=== PATIENT | male | born 1940 | race Caucasian/White ===

== ENCOUNTER 2018-06-14 21:24 | Emergency (ER) | payer MEDICARE, MEDICAID ==
[~2018-06-14] VITALS: Ht 188 cm; Wt 79.4 kg
[2018-06-14] MEDS ORDERED: TDAP DIPH,PERTUSS,TET VAC/PF 0.5 ML DISP.SYRIN IM ONE ×2 (21:50→22:00)
--- NOTE | 2018-06-14 21:57 | NUR ---
Patient discharged to home in stable conditon. Written and verbal after care instructions given. Patient verbalizes understanding of instructions. Pt ambulated out of ER in steady gait with family member. VSS. NAD noted.
[2018-06-14 21:58] VITALS: BP 112/74
== END 2018-06-14 21:59 | disposition home or self-care (01) ==
LOC: ER 21:27
DX: S81.812D Laceration without foreign body, left lower leg, subsequent encounter (principal); L08.9 Local infection of the skin and subcutaneous tissue, unspecified; K21.9 Gastro-esophageal reflux disease without esophagitis; W22.8XXD Striking against or struck by other objects, subsequent encounter
CPT/HCPCS: 90471; 90715; 99283; A4663

== ENCOUNTER 2019-03-31 20:19 | Emergency (ER) | payer MEDICARE, MEDICAID ==
[~2019-03-31] VITALS: Ht 175.3 cm; Wt 81.2 kg
[2019-03-31] MEDS ORDERED: IV NORMAL SALINE 1000 ML BAG IV ONE (21:00)
[2019-03-31 21:26] LABS: BASOPHILS % (AUTO) 0.4 % (0.0-2.0); CARBON DIOXIDE 24 mmol/L (21-32); CHLORIDE 106 mmol/L (98-107); CREATININE 0.8 mg/dL (0.6-1.3); EOSINOPHILS # (AUTO) 0.1 K/uL (0.0-0.7); EOSINOPHILS % (AUTO) 0.7 % (0.0-7.0); GLUCOSE 113 mg/dL (74-106); HEMATOCRIT 38.7 % (36.7-47.1); HEMOGLOBIN 13.3 g/dL (12.5-16.3); LYMPHOCYTES # (AUTO) 0.5 K/uL (20.0-40.0); LYMPHOCYTES % (AUTO) 4.9 % (20.5-51.5); MEAN CORPUSCULAR HEMOGLOBIN 32.3 uug (23.8-33.4); MEAN CORPUSCULAR HGB CONC 34 g/dL (32.5-36.3); MEAN CORPUSCULAR VOLUME 93.9 fL (73.0-96.2); MONOCYTES # (AUTO) 0.4 K/uL (2.0-10.0); MONOCYTES % (AUTO) 4.6 % (0.0-11.0); NEUTROPHILS # (AUTO) 8.3 K/uL (1.8-8.9); NEUTROPHILS % (AUTO) 89.4 % (38.5-71.5); PLATELET COUNT (AUTO) 192 K/uL (152-348); RED BLOOD CELL COUNT(AUTO) 4.12 MIL/uL (4.06-5.63); UREA NITROGEN, BLOOD 15 mg/dL (7-18); WHITE BLOOD COUNT (AUTO) 9.3 K/uL (3.6-10.2)
[2019-03-31 21:32] LABS: ALANINE AMINOTRANSFERASE 17 U/L (16-63); ALKALINE PHOSPHATASE 86 U/L (50-136); ASPARTATE AMINOTRANSFERASE 14 U/L (15-37); BILIRUBIN,DIRECT 0.1 mg/dL (0.0-0.2); BILIRUBIN,TOTAL 0.4 mg/dL (0.2-1.0); LIPASE 102 U/L (73-393); TOTAL PROTEIN, SERUM 7.1 g/dL (6.4-8.2)
[2019-03-31] MEDS ORDERED: MORPHINE SULFATE 4 MG/1 ML DISP.SYRIN ONE (22:14)
[2019-03-31] MEDS ORDERED: MORPHINE SULFATE 4 MG/1 ML DISP.SYRIN IV ONE (22:15)
[2019-03-31] MEDS ORDERED: ASPIRIN 325 MG TABLET ONE (22:38)
--- NOTE | 2019-03-31 22:38 | NUR ---
Lying on [facility] 60s C/o2 2-10 cp denies n/v or dizziness. S/l intact. Pt inventory list completed. Addendum: 03/31/19 at 2242 by WILLIAN wrong pt
--- NOTE | 2019-03-31 22:42 | NUR ---
TEle sr 68s Iv cont infusing to right 20 ga to right forearm c/o 4-10 abd pain denies n/v/d family member remains at bedside. CT and xray done
--- NOTE | 2019-04-01 00:24 | NUR ---
Ekg done D/c to home with advised not to drive. Gived CT abd cd. Denies of any dstress. S/l dc cath intact. Signed and undersands aci.
[2019-04-01 00:26] VITALS: BP 109/62
== END 2019-04-01 00:29 | disposition home or self-care (01) ==
LOC: ER 20:21
DX: I71.4 Abdominal aortic aneurysm, without rupture (principal)
CPT/HCPCS: 36415; 74176; 80048; 80076; 83605; 83690; 85025; 87040 ×2; 93005 ×2; 96361; 96374; 99284; J2270; A4663; J7030